=== PATIENT | female | born 1955 | race Caucasian/White ===

== ENCOUNTER 2019-12-22 11:52 | Inpatient (IN) ==
[2019-12-22 12:37] LABS: Basophils % 0.1 % (0.0-0.8); Hematocrit 34.3 VOL% (35.7-47.0); Hemoglobin 10.8 GM/DL (12.0-16.0); Immature Granulocytes % 0.6 %; Immature Granulocytes Absolute 0.13 #; Lymphocytes # 0.7 10*3/uL (1.4-4.0); Lymphocytes % 3.2 % (21.3-54.2); Mean Corpuscular HGB Conc 31.5 GM/DL (32-36); Mean Corpuscular Volume 100.6 FL (87-102); Mean Platelet Volume 9.4 FL (9.6-12.0); Neutrophils % 89.1 % (38.7-73.9); Platelet Count 209 T/CUMM (130-400); Red Blood Count 3.41 MC/CUMM (3.8-5.5); Red Cell Distribution Width 13.4 % (9.3-17.3); White Blood Count 20.3 T/CUMM (4-12)
[2019-12-22 12:51] LABS: ABG Base Excess 5.7 MMOL/L (-2.5-2.5); ABG HCO3 29.5 MMOL/L (20-26); ABG Oxygen Saturation 94.9 % (95-100); ABG PH 7.224 (7.35-7.45); ABG PO2 79.8 MM HG (80-95); ABG TCO2 33.9 MMOL/L (23-27); Allen Test Positive
[2019-12-22 12:54] LABS: ABG PCO2 88.5 MM HG (35-48)
[2019-12-22 12:55] LABS: PT Patient Result 10.8 SECS (9.8-11.9); Partial Thromboplastin Time 31.5 SECS (23.9-33.8)
[2019-12-22 13:01] LABS: Alanine Aminotransferase 17 U/L (13-56); Albumin 3.1 G/DL (3.4-5.0); Alkaline Phosphatase 78 U/L (45-117); Aspartate Amino Transferase 12 U/L (0-37); Bilirubin,Total < 0.39 MG/DL (0.2-1.0); Blood Urea Nitrogen 11 MG/DL (7-18); Calcium 9.2 MG/DL (8.5-10.1); Glucose 143 MG/DL (74-106); Osmolality,Calculated 275.7 MOS/KG (273-304); Total Protein 6.6 G/DL (6.4-8.3)
[2019-12-22 13:03] LABS: Estimated Glom Filtration Rate 0 ML/MIN
[2019-12-22 13:24] LABS: Anisocytosis 1+; Band Neutrophils 15 % (0-10); Lymphocytes 3 % (20-55); Macrocytosis 1+; Platelet Estimate Normal; Segmented Neutrophils 74 % (50-85); Total Cells Counted 100
[2019-12-22 13:39] LABS: Amorphous Crystals,Urine Occasional /HPF (Few); Apearance,Urine CLOUDY (Clear); Bacteria,Urine Occasional /HPF (Few); Bilirubin,Urine Negative (Negative); Blood, Urine Large mg/dL (Negative); Glucose,Urine (UA) Negative (Negative); Ketones,Urine Negative (Negative); Nitrite,Urine Negative (Negative); Protein,Urine 30 MG/DL; RBC,Urine 325 /HPF (0-4); Urine Color Yellow (Yellow); Urine Specific Gravity 1.019 (1.001-1.035); Urine Urobilinogen < 2.0 EU/DL (0.2-1.0); WBC,Urine 2 /HPF (0-6)
[2019-12-22 13:54] LABS: Barbiturates Screen,Urine Negative (Negative); Benzodiazepines Screen,Urine Negative (Negative); Cannabinoid Screen,Urine Negative (Negative); Opiate Screen,Urine Positive (Negative); Phencyclidine Screen,Urine Negative (Negative)
[2019-12-22] MEDS ORDERED: ALBUTEROL 2.5 MG/3 ML NEB RESP TX PRN (14:32)
[2019-12-22] MEDS ORDERED: DEXTROSE 50% 25 GM/50 ML VIAL IV PRN (14:32)
[2019-12-22] MEDS ORDERED: GLUCAGON 1 MG VIAL IM PRN (14:32)
[2019-12-22] MEDS ORDERED: ONDANSETRON 4 MG/2 ML VIAL IV PRN (14:32)
[2019-12-22] MEDS ORDERED: PANTOPRAZOLE 40 MG VIAL IV SCH (15:00)
[2019-12-22 15:14] LABS: ABG Base Excess 6.9 MMOL/L (-2.5-2.5); ABG HCO3 30.5 MMOL/L (20-26); ABG Oxygen Saturation 88.1 % (95-100); ABG PH 7.299 (7.35-7.45); ABG PO2 56.5 MM HG (80-95); ABG TCO2 32.8 MMOL/L (23-27)
[2019-12-22 15:15] LABS: ABG PCO2 73.4 MM HG (35-48)
[2019-12-22] MEDS: cefTRIAXone 1,000 MG in SYRINGE 1 EACH IV SCH (16:25)
[2019-12-22] MEDS: ENOXAPARIN 40 MG/0.4 ML SYRINGE SUBCUT SCH (16:25)
[2019-12-22] MEDS: methylPREDNISolone SOD SUC 40 MG/1 ML VIAL IV SCH (16:25)
[2019-12-22] MEDS: LEVOFLOXACIN INJ 500 MG in PREMIX 1 EACH IV SCH (16:26)
[2019-12-22] MEDS: LACTATED RINGERS 1,000 ML IV SCH (16:27)
[2019-12-22] MEDS: INSULIN LISPRO 100 UNIT/ML SUBCUT SCH ×2 (16:52→21:11)
[2019-12-22] MEDS: ALBUTEROL 2.5 MG/3 ML NEB RESP TX SCH (19:47)
[2019-12-22] MEDS ORDERED: KETOROLAC 30 MG/1 ML VIAL IV ONE (21:25)
[2019-12-23] MEDS: ALBUTEROL 2.5 MG/3 ML NEB RESP TX SCH ×5 (00:20→20:10)
[2019-12-23] MEDS: methylPREDNISolone SOD SUC 40 MG/1 ML VIAL IV SCH ×3 (03:51→15:54)
[2019-12-23 04:20] LABS: Calcium 9.2 MG/DL (8.5-10.1); Osmolality,Calculated 278.5 MOS/KG (273-304)
[2019-12-23 04:24] LABS: Basophils % 0.1 % (0.0-0.8); Hematocrit 32.3 VOL% (35.7-47.0); Hemoglobin 10.2 GM/DL (12.0-16.0); Immature Granulocytes % 0.6 %; Immature Granulocytes Absolute 0.09 #; Lymphocytes # 0.8 10*3/uL (1.4-4.0); Lymphocytes % 5.6 % (21.3-54.2); Mean Corpuscular HGB Conc 31.6 GM/DL (32-36); Mean Platelet Volume 9.5 FL (9.6-12.0); Monocytes % 5.2 % (1.7-12.7); Neutrophils % 88.5 % (38.7-73.9); Platelet Count 195 T/CUMM (130-400); Red Blood Count 3.23 MC/CUMM (3.8-5.5); Red Cell Distribution Width 13.1 % (9.3-17.3); White Blood Count 14.5 T/CUMM (4-12)
[2019-12-23] MEDS: INSULIN LISPRO 100 UNIT/ML SUBCUT SCH ×4 (08:49→21:00)
[2019-12-23] MEDS ORDERED: NON-FORMULARY MEDICATION (Irbesartan-Hydrochlorothiazide 300-12.5 mg tablet) PO SCH (09:00)
[2019-12-23] MEDS: ASPIRIN EC 81 MG TABLET PO SCH (09:34)
[2019-12-23] MEDS: CHOLECALCIFEROL 1,000 UNIT TABLET PO SCH (09:35)
[2019-12-23] MEDS: PANTOPRAZOLE 40 MG TABLET PO SCH ×2 (09:36→21:07)
[2019-12-23] MEDS: ESCITALOPRAM 10 MG TABLET PO SCH (09:36)
[2019-12-23] MEDS: FERROUS SULFATE 325 MG TABLET PO SCH (09:36)
[2019-12-23] MEDS: LORATADINE 10 MG TABLET PO SCH (09:36)
[2019-12-23] MEDS: atenoloL 25 MG TABLET PO SCH (09:36)
[2019-12-23] MEDS: LACTATED RINGERS 1,000 ML IV SCH (09:38)
[2019-12-23] MEDS ORDERED: ALPRAZolam 0.5 MG TABLET PO ONE (09:46)
[2019-12-23 09:53] LABS: ABG Base Excess 8.3 MMOL/L (-2.5-2.5); ABG Oxygen Saturation 95.2 % (95-100); ABG PCO2 53.5 MM HG (35-48); ABG PH 7.417 (7.35-7.45); ABG PO2 71.2 MM HG (80-95); ABG TCO2 31.1 MMOL/L (23-27)
[2019-12-23] MEDS: ENOXAPARIN 40 MG/0.4 ML SYRINGE SUBCUT SCH (15:19)
[2019-12-23] MEDS: LEVOFLOXACIN INJ 500 MG in PREMIX 1 EACH IV SCH (15:19)
[2019-12-23] MEDS: cefTRIAXone 1,000 MG in SYRINGE 1 EACH IV SCH (15:20)
[2019-12-23] MEDS: busPIRone 10 MG TABLET PO SCH ×2 (15:20→21:07)
[2019-12-23] MEDS ORDERED: lamoTRIgine 100 MG TABLET PO SCH (21:00)
[2019-12-23] MEDS ORDERED: ROSUVASTATIN 20 MG TABLET PO SCH (21:00)
[2019-12-24] MEDS: ALBUTEROL 2.5 MG/3 ML NEB RESP TX SCH ×2 (00:31→07:26)
[2019-12-24] MEDS: methylPREDNISolone SOD SUC 40 MG/1 ML VIAL IV SCH (04:15)
[2019-12-24 05:32] LABS: Basophils % 0.1 % (0.0-0.8); Hematocrit 32.1 VOL% (35.7-47.0); Hemoglobin 10.5 GM/DL (12.0-16.0); Immature Granulocytes % 0.5 %; Immature Granulocytes Absolute 0.06 #; Lymphocytes # 1.7 10*3/uL (1.4-4.0); Mean Corpuscular HGB Conc 32.7 GM/DL (32-36); Mean Corpuscular Volume 96.4 FL (87-102); Mean Platelet Volume 9.7 FL (9.6-12.0); Monocytes % 8.4 % (1.7-12.7); Platelet Count 224 T/CUMM (130-400); Red Blood Count 3.33 MC/CUMM (3.8-5.5); Red Cell Distribution Width 13.2 % (9.3-17.3); White Blood Count 13.1 T/CUMM (4-12)
[2019-12-24 05:54] LABS: Calcium 9.2 MG/DL (8.5-10.1); Osmolality,Calculated 277.7 MOS/KG (273-304)
[2019-12-24] MEDS: INSULIN LISPRO 100 UNIT/ML SUBCUT SCH (07:44)
[2019-12-24 08:24] VITALS: BP 164/65
[2019-12-24] MEDS: ASPIRIN EC 81 MG TABLET PO SCH (08:28)
[2019-12-24] MEDS: LORATADINE 10 MG TABLET PO SCH (08:28)
[2019-12-24] MEDS: busPIRone 10 MG TABLET PO SCH (08:28)
[2019-12-24] MEDS: PANTOPRAZOLE 40 MG TABLET PO SCH (08:29)
[2019-12-24] MEDS: FERROUS SULFATE 325 MG TABLET PO SCH (08:29)
[2019-12-24] MEDS: CHOLECALCIFEROL 1,000 UNIT TABLET PO SCH (08:29)
[2019-12-24] MEDS: ESCITALOPRAM 10 MG TABLET PO SCH (08:29)
[2019-12-24] MEDS: atenoloL 25 MG TABLET PO SCH (08:29)
== END 2019-12-24 12:37 | disposition home or self-care (01) | DRG 189 ==
LOC: EDBD → N.ED 11:52 → SUATTDRO 13:17 → N.EDINP 13:17 → N.CC 14:20 → N.2E 12-23 12:41
PROVIDERS: ADMIT Internal Medicine; ATTEND Internal Medicine

== ENCOUNTER 2020-11-17 16:58 | Inpatient (IN) ==
[2020-11-17 17:37] LABS: ABG Base Excess 9.2 MMOL/L (-2.5-2.5); ABG Oxygen Saturation 99.9 % (95-100); ABG PCO2 59.5 MM HG (35-48); ABG PH 7.398 (7.35-7.45); ABG TCO2 31.7 MMOL/L (23-27)
[2020-11-17] MEDS ORDERED: ACETAMINOPHEN 325 MG TABLET PO PRN (17:59)
[2020-11-17] MEDS ORDERED: MORPHINE 2 MG/1 ML SYRINGE IV PRN ×2 (17:59→21:32)
[2020-11-17] MEDS ORDERED: ONDANSETRON 4 MG/2 ML VIAL IV PRN (17:59)
[2020-11-17 18:33] LABS: Albumin 3.1 G/DL (3.4-5.0); Bilirubin,Total 0.7 MG/DL (0.20-1.00); Calcium 9.2 MG/DL (8.5-10.1); Osmolality,Calculated 277.8 MOS/KG (273-304); Potassium 4.4 MMOL/L (3.5-5.1); Total Protein 6.2 G/DL (6.4-8.2)
[2020-11-17 18:34] LABS: Basophils % 0.1 % (0.0-0.8); Hematocrit 46.5 VOL% (35.7-47.0); Hemoglobin 13.6 GM/DL (12.0-16.0); Lymphocytes % 7.8 % (21.3-54.2); Mean Corpuscular HGB Conc 29.2 GM/DL (32-36); Mean Corpuscular Volume 102.2 FL (87-102); Mean Platelet Volume 10.1 FL (9.6-12.0); Monocytes % 9.9 % (1.7-12.7); Neutrophils % 81.2 % (38.7-73.9); Platelet Count 160 T/CUMM (130-400); Red Blood Count 4.55 MC/CUMM (3.8-5.5); White Blood Count 12.4 T/CUMM (4-12)
[2020-11-17] MEDS: PANTOPRAZOLE 40 MG VIAL IV SCH (19:29)
[2020-11-17] MEDS: SODIUM CHLORIDE 0.9% 1,000 ML IV SCH (19:29)
[2020-11-17] MEDS: ENOXAPARIN 40 MG/0.4 ML SYRINGE SUBCUT SCH (19:29)
[2020-11-17] MEDS: CLINDAMYCIN INJ 600 MG/50 ML PREMIX IV SCH (19:32)
[2020-11-17] MEDS: ALBUTEROL/IPRATROPIUM 3 ML NEB RESP TX SCH (19:51)
[2020-11-17] MEDS: QUEtiapine 100 MG TABLET PO SCH (21:03)
[2020-11-17] MEDS: lamoTRIgine 100 MG TABLET PO SCH (21:20)
[2020-11-18] MEDS: SODIUM CHLORIDE 0.9% 1,000 ML IV SCH ×2 (00:38→08:07)
[2020-11-18] MEDS: ALBUTEROL/IPRATROPIUM 3 ML NEB RESP TX SCH ×4 (00:54→19:20)
[2020-11-18] MEDS: CLINDAMYCIN INJ 600 MG/50 ML PREMIX IV SCH ×2 (03:46→09:35)
[2020-11-18 04:17] LABS: ABG Base Excess 8.3 MMOL/L (-2.5-2.5); ABG HCO3 35.3 MMOL/L (20-26); ABG Oxygen Saturation 99.6 % (95-100); ABG PH 7.388 (7.35-7.45); ABG TCO2 37.2 MMOL/L (23-27)
[2020-11-18 05:32] LABS: Basophils % 0.1 % (0.0-0.8); Eosinophils % 0.2 % (0.00-10.9); Hematocrit 40.9 VOL% (35.7-47.0); Hemoglobin 12.5 GM/DL (12.0-16.0); Immature Granulocytes % 0.6 %; Immature Granulocytes Absolute 0.06 #; Lymphocytes # 1.7 10*3/uL (1.4-4.0); Lymphocytes % 15.7 % (21.3-54.2); Mean Corpuscular HGB Conc 30.6 GM/DL (32-36); Mean Platelet Volume 10.4 FL (9.6-12.0); Monocytes % 11.6 % (1.7-12.7); Neutrophils % 71.8 % (38.7-73.9); Platelet Count 155 T/CUMM (130-400); Red Blood Count 4.09 MC/CUMM (3.8-5.5); Red Cell Distribution Width 15.2 % (9.3-17.3); White Blood Count 10.6 T/CUMM (4-12)
[2020-11-18 05:52] LABS: Calcium 8.6 MG/DL (8.5-10.1); Osmolality,Calculated 273.1 MOS/KG (273-304); Potassium 3.9 MMOL/L (3.5-5.1)
[2020-11-18] MEDS: ASPIRIN EC 81 MG TABLET PO SCH (08:29)
[2020-11-18] MEDS: atenoloL 25 MG TABLET PO SCH (08:32)
[2020-11-18] MEDS: ESCITALOPRAM 10 MG TABLET PO SCH (08:32)
[2020-11-18] MEDS: CHOLECALCIFEROL 1,000 UNIT TABLET PO SCH (08:32)
[2020-11-18 08:37] LABS: Bilirubin,Urine Negative (Negative); Blood, Urine Large mg/dL (Negative); Glucose,Urine (UA) Negative (Negative); Hyaline Casts,Urine 7 /LPF (0-3); Ketones,Urine 20 mg/dL (Negative); Nitrite,Urine Negative (Negative); Protein,Urine Negative; RBC,Urine 157 /HPF (0-4); Squamous Epithelial Cell,Urine Occasional /HPF (0-10); Urine Appearance CLEAR (Clear); Urine Color Amber (Yellow); Urine Specific Gravity 1.019 (1.001-1.035); Urine Urobilinogen < 2.0 EU/DL (0.2-1.0)
[2020-11-18] MEDS ORDERED: atenoloL 25 MG TABLET PO SCH (09:00)
[2020-11-18] MEDS: acetaZOLAMIDE 250 MG TABLET PO SCH ×2 (09:29→23:17)
[2020-11-18 13:18] LABS: ABG Base Excess 8.6 MMOL/L (-2.5-2.5); ABG HCO3 32.3 MMOL/L (20-26); ABG Oxygen Saturation 95.2 % (95-100); ABG PCO2 59.2 MM HG (35-48); ABG PH 7.391 (7.35-7.45); ABG PO2 78.5 MM HG (80-95); ABG TCO2 31.6 MMOL/L (23-27)
[2020-11-18] MEDS ORDERED: RACEPINEPHRINE 0.5 ML NEB RESP TX ONE (15:54)
[2020-11-18] MEDS ORDERED: DEXAMETHASONE 4 MG/1 ML VIAL IV STA (15:54)
[2020-11-18] MEDS: CEFEPIME 1,000 MG in SODIUM CHLORIDE 0.9% 100 ML IV SCH ×2 (16:13→23:01)
[2020-11-18] MEDS ORDERED: VANCOMYCIN INJ 2,500 MG in SODIUM CHLORIDE 0.9% 500 ML IV ONE (17:00)
[2020-11-18] MEDS: ENOXAPARIN 40 MG/0.4 ML SYRINGE SUBCUT SCH (17:24)
[2020-11-18] MEDS: PANTOPRAZOLE 40 MG VIAL IV SCH (17:26)
[2020-11-18] MEDS: lamoTRIgine 100 MG TABLET PO SCH (23:16)
[2020-11-18] MEDS: ROSUVASTATIN 20 MG TABLET PO SCH (23:17)
[2020-11-18] MEDS: QUEtiapine 100 MG TABLET PO SCH (23:22)
[2020-11-19] MEDS: ALBUTEROL/IPRATROPIUM 3 ML NEB RESP TX SCH ×4 (00:58→19:43)
[2020-11-19 04:04] LABS: ABG Base Excess 5.3 MMOL/L (-2.5-2.5); ABG HCO3 33.8 MMOL/L (20-26); ABG Oxygen Saturation 99.6 % (95-100); ABG PH 7.306 (7.35-7.45); ABG PO2 348.3 MM HG (80-95)
[2020-11-19 04:10] LABS: ABG PCO2 69.4 MM HG (35-48)
[2020-11-19 05:59] LABS: Albumin 2.6 G/DL (3.4-5.0); Bilirubin,Total 1.1 MG/DL (0.20-1.00); Osmolality,Calculated 284.4 MOS/KG (273-304); Potassium 4.1 MMOL/L (3.5-5.1); Total Protein 6.1 G/DL (6.4-8.2)
[2020-11-19] MEDS: CEFEPIME 1,000 MG in SODIUM CHLORIDE 0.9% 100 ML IV SCH ×4 (06:06→22:10)
[2020-11-19] MEDS: VANCOMYCIN INJ 1,750 MG in SODIUM CHLORIDE 0.9% 500 ML IV SCH ×2 (06:46→17:31)
[2020-11-19 07:27] LABS: Basophils % 0.1 % (0.0-0.8); Hematocrit 41.2 VOL% (35.7-47.0); Hemoglobin 12.3 GM/DL (12.0-16.0); Immature Granulocytes % 0.9 %; Immature Granulocytes Absolute 0.08 #; Lymphocytes # 0.5 10*3/uL (1.4-4.0); Lymphocytes % 5.5 % (21.3-54.2); Mean Corpuscular HGB Conc 29.9 GM/DL (32-36); Mean Corpuscular Volume 102.7 FL (87-102); Mean Platelet Volume 10.6 FL (9.6-12.0); Monocytes % 7.3 % (1.7-12.7); Neutrophils % 86.2 % (38.7-73.9); Platelet Count 164 T/CUMM (130-400); Red Blood Count 4.01 MC/CUMM (3.8-5.5); Red Cell Distribution Width 15.2 % (9.3-17.3); White Blood Count 8.9 T/CUMM (4-12)
[2020-11-19] MEDS: ASPIRIN EC 81 MG TABLET PO SCH (08:40)
[2020-11-19] MEDS: ESCITALOPRAM 10 MG TABLET PO SCH (08:40)
[2020-11-19] MEDS: LOSARTAN 25 MG TABLET PO SCH (08:40)
[2020-11-19] MEDS: acetaZOLAMIDE 250 MG TABLET PO SCH ×2 (08:40→22:07)
[2020-11-19] MEDS: CHOLECALCIFEROL 1,000 UNIT TABLET PO SCH (08:40)
[2020-11-19] MEDS: atenoloL 25 MG TABLET PO SCH (08:40)
[2020-11-19] MEDS ORDERED: guaiFENesin/DM ER 600-30 MG TABLET PO PRN (08:51)
[2020-11-19 09:49] LABS: ABG HCO3 28.8 MMOL/L (20-26); ABG Oxygen Saturation 94.9 % (95-100); ABG PCO2 62.9 MM HG (35-48); ABG PH 7.329 (7.35-7.45); ABG PO2 77.1 MM HG (80-95); ABG TCO2 29.5 MMOL/L (23-27)
[2020-11-19] MEDS: predniSONE 20 MG TABLET PO SCH (11:22)
[2020-11-19] MEDS: ACETAMINOPHEN 500 MG TABLET PO PRN (11:25)
[2020-11-19] MEDS: hydrALAZINE 20 MG/1 ML VIAL IV PRN (13:35)
[2020-11-19 14:45] LABS: ABG Base Excess 5.1 MMOL/L (-2.5-2.5); ABG HCO3 28.8 MMOL/L (20-26); ABG Oxygen Saturation 91.7 % (95-100); ABG PCO2 46.7 MM HG (35-48); ABG PH 7.422 (7.35-7.45); ABG TCO2 26.6 MMOL/L (23-27)
[2020-11-19] MEDS: ENOXAPARIN 40 MG/0.4 ML SYRINGE SUBCUT SCH (17:31)
[2020-11-19] MEDS: PANTOPRAZOLE 40 MG VIAL IV SCH (17:31)
[2020-11-19] MEDS ORDERED: ALBUTEROL 2.5 MG/3 ML NEB RESP TX PRN (18:09)
[2020-11-19] MEDS: SODIUM CHLORIDE 3% 4 ML NEB RESP TX SCH (19:44)
[2020-11-19] MEDS: busPIRone 5 MG TABLET PO SCH (22:07)
[2020-11-19] MEDS: lamoTRIgine 100 MG TABLET PO SCH (22:07)
[2020-11-19] MEDS: QUEtiapine 100 MG TABLET PO SCH (22:07)
[2020-11-19] MEDS: ROSUVASTATIN 20 MG TABLET PO SCH (22:10)
[2020-11-20] MEDS: ALBUTEROL/IPRATROPIUM 3 ML NEB RESP TX SCH ×4 (00:18→19:49)
[2020-11-20 03:32] LABS: ABG Base Excess 2.7 MMOL/L (-2.5-2.5); ABG HCO3 26.7 MMOL/L (20-26); ABG PCO2 66.7 MM HG (35-48); ABG PH 7.284 (7.35-7.45); ABG PO2 74.6 MM HG (80-95); ABG TCO2 28.4 MMOL/L (23-27)
[2020-11-20] MEDS: hydrALAZINE 20 MG/1 ML VIAL IV PRN ×2 (05:08→17:09)
[2020-11-20] MEDS: CEFEPIME 1,000 MG in SODIUM CHLORIDE 0.9% 100 ML IV SCH ×3 (05:08→15:30)
[2020-11-20 05:16] LABS: Basophils % 0.2 % (0.0-0.8); Eosinophils % 0.2 % (0.00-10.9); Hematocrit 39.7 VOL% (35.7-47.0); Hemoglobin 12.1 GM/DL (12.0-16.0); Immature Granulocytes % 0.9 %; Immature Granulocytes Absolute 0.07 #; Lymphocytes # 1.1 10*3/uL (1.4-4.0); Lymphocytes % 13.1 % (21.3-54.2); Mean Corpuscular HGB Conc 30.5 GM/DL (32-36); Mean Platelet Volume 9.7 FL (9.6-12.0); Monocytes % 12.7 % (1.7-12.7); Neutrophils % 72.9 % (38.7-73.9); Platelet Count 152 T/CUMM (130-400); Red Blood Count 3.97 MC/CUMM (3.8-5.5); White Blood Count 8.2 T/CUMM (4-12)
[2020-11-20 05:39] LABS: Osmolality,Calculated 282.3 MOS/KG (273-304); Potassium 3.5 MMOL/L (3.5-5.1)
[2020-11-20] MEDS: SODIUM CHLORIDE 3% 4 ML NEB RESP TX SCH ×2 (07:10→19:49)
[2020-11-20] MEDS: ASPIRIN EC 81 MG TABLET PO SCH (09:29)
[2020-11-20] MEDS: DOCUSATE SODIUM 100 MG CAPSULE PO SCH (09:29)
[2020-11-20] MEDS: ESCITALOPRAM 10 MG TABLET PO SCH (09:29)
[2020-11-20] MEDS: CHOLECALCIFEROL 1,000 UNIT TABLET PO SCH (09:29)
[2020-11-20] MEDS: LOSARTAN 25 MG TABLET PO SCH (09:29)
[2020-11-20] MEDS: predniSONE 20 MG TABLET PO SCH (09:29)
[2020-11-20] MEDS: THEOPHYLLINE ER 300 MG TABLET PO SCH (09:29)
[2020-11-20] MEDS: acetaZOLAMIDE 250 MG TABLET PO SCH ×2 (09:29→20:56)
[2020-11-20] MEDS: ACETAMINOPHEN 500 MG TABLET PO PRN (09:30)
[2020-11-20] MEDS: atenoloL 25 MG TABLET PO SCH (09:30)
[2020-11-20] MEDS: busPIRone 5 MG TABLET PO SCH ×3 (09:30→20:57)
[2020-11-20] MEDS: VANCOMYCIN INJ 1,750 MG in SODIUM CHLORIDE 0.9% 500 ML IV SCH ×2 (10:26→20:57)
[2020-11-20] MEDS: MORPHINE ER 15 MG TABLET PO SCH (17:07)
[2020-11-20] MEDS: ENOXAPARIN 40 MG/0.4 ML SYRINGE SUBCUT SCH (17:08)
[2020-11-20] MEDS: PANTOPRAZOLE 40 MG VIAL IV SCH (17:08)
[2020-11-20] MEDS: lamoTRIgine 100 MG TABLET PO SCH (20:55)
[2020-11-20] MEDS: QUEtiapine 100 MG TABLET PO SCH (20:56)
[2020-11-20] MEDS: ROSUVASTATIN 20 MG TABLET PO SCH (20:57)
[2020-11-20] MEDS: hydrALAZINE 25 MG TABLET PO SCH (20:57)
[2020-11-21] MEDS: ALBUTEROL/IPRATROPIUM 3 ML NEB RESP TX SCH ×3 (00:15→13:27)
[2020-11-21] MEDS: CEFEPIME 1,000 MG in SODIUM CHLORIDE 0.9% 100 ML IV SCH ×3 (00:24→13:24)
[2020-11-21 06:41] LABS: Basophils % 0.3 % (0.0-0.8); Eosinophils # 0.1 10*3/uL (0.0-0.87); Eosinophils % 0.6 % (0.00-10.9); Hematocrit 39.4 VOL% (35.7-47.0); Immature Granulocytes % 0.6 %; Immature Granulocytes Absolute 0.05 #; Lymphocytes # 1.5 10*3/uL (1.4-4.0); Lymphocytes % 18.6 % (21.3-54.2); Mean Corpuscular HGB Conc 30.5 GM/DL (32-36); Mean Corpuscular Volume 100.8 FL (87-102); Monocytes % 12.6 % (1.7-12.7); Neutrophils % 67.3 % (38.7-73.9); Platelet Count 160 T/CUMM (130-400); Red Blood Count 3.91 MC/CUMM (3.8-5.5); Red Cell Distribution Width 15.3 % (9.3-17.3); White Blood Count 7.8 T/CUMM (4-12)
[2020-11-21] MEDS: SODIUM CHLORIDE 3% 4 ML NEB RESP TX SCH (07:08)
[2020-11-21 07:17] LABS: Potassium 3.4 MMOL/L (3.5-5.1)
[2020-11-21] MEDS: acetaZOLAMIDE 250 MG TABLET PO SCH (09:46)
[2020-11-21] MEDS: ASPIRIN EC 81 MG TABLET PO SCH (09:46)
[2020-11-21] MEDS: CHOLECALCIFEROL 1,000 UNIT TABLET PO SCH (09:46)
[2020-11-21] MEDS: predniSONE 20 MG TABLET PO SCH (09:46)
[2020-11-21] MEDS: THEOPHYLLINE ER 300 MG TABLET PO SCH (09:46)
[2020-11-21] MEDS: atenoloL 25 MG TABLET PO SCH (09:46)
[2020-11-21] MEDS: ESCITALOPRAM 10 MG TABLET PO SCH (09:46)
[2020-11-21] MEDS: busPIRone 5 MG TABLET PO SCH ×2 (09:46→14:52)
[2020-11-21] MEDS: DOCUSATE SODIUM 100 MG CAPSULE PO SCH (09:47)
[2020-11-21] MEDS: MORPHINE ER 15 MG TABLET PO SCH (09:47)
[2020-11-21] MEDS: LOSARTAN 25 MG TABLET PO SCH (09:47)
[2020-11-21] MEDS: VANCOMYCIN INJ 1,750 MG in SODIUM CHLORIDE 0.9% 500 ML IV SCH (09:47)
[2020-11-21] MEDS: hydrALAZINE 25 MG TABLET PO SCH (09:47)
[2020-11-21] MEDS ORDERED: POTASSIUM CHLORIDE 20 MEQ TABLET PO ONE (10:00)
[2020-11-21 12:09] VITALS: BP 139/56
[2020-11-21] MEDS ORDERED: cephALEXin 500 MG CAPSULE PO SCH (17:00)
== END 2020-11-21 15:47 | disposition home or self-care (01) | DRG 917 ==
LOC: N.ED 16:58 → SUATTDRO 17:58 → N.EDINP 17:58 → N.ICU 20:30 → N.3E 11-19 18:13
PROVIDERS: ADMIT Family Medicine; ATTEND Hospitalist

== ENCOUNTER 2021-03-02 09:30 | Inpatient (IN) ==
[2021-03-02] MEDS ORDERED: methylPREDNISolone SOD SUC 125 MG/2 ML VIAL IV STA (10:16)
[2021-03-02] MEDS ORDERED: ALBUTEROL NEB SOLN 5 MG/ML 20 ML/BOTTLE RESP TX ONE (10:17)
[2021-03-02] MEDS ORDERED: ALBUTEROL 2.5 MG/3 ML NEB RESP TX ONE (10:18)
[2021-03-02] MEDS ORDERED: methylPREDNISolone SOD SUC 125 MG/2 ML VIAL ONE (10:40)
[2021-03-02 10:41] LABS: ABG Base Excess 15.7 MMOL/L (-2.5-2.5); ABG HCO3 39.6 MMOL/L (20-26); ABG Oxygen Saturation 95.5 % (95-100); ABG PH 7.366 (7.35-7.45); ABG PO2 76.5 MM HG (80-95); ABG TCO2 40.4 MMOL/L (23-27)
[2021-03-02 10:43] LABS: ABG PCO2 79.1 MM HG (35-48)
[2021-03-02 10:43] LABS: Basophils % 0.2 % (0.0-0.8); Eosinophils % 0.2 % (0.00-10.9); Hematocrit 40.4 VOL% (35.7-47.0); Hemoglobin 12.2 GM/DL (12.0-16.0); Immature Granulocytes % 0.7 %; Immature Granulocytes Absolute 0.08 #; Lymphocytes # 1.5 10*3/uL (1.4-4.0); Lymphocytes % 12.3 % (21.3-54.2); Mean Corpuscular HGB Conc 30.2 GM/DL (32-36); Mean Corpuscular Volume 102.5 FL (87-102); Mean Platelet Volume 9.9 FL (9.6-12.0); Monocytes % 9.2 % (1.7-12.7); Neutrophils % 77.4 % (38.7-73.9); Platelet Count 166 T/CUMM (130-400); Red Blood Count 3.94 MC/CUMM (3.8-5.5); White Blood Count 12.1 T/CUMM (4-12)
[2021-03-02 11:02] LABS: Albumin 3.3 G/DL (3.4-5.0); Bilirubin,Total 0.7 MG/DL (0.20-1.00); Calcium 9.8 MG/DL (8.5-10.1); Potassium 3.9 MMOL/L (3.5-5.1); Total Protein 6.3 G/DL (6.4-8.2)
[2021-03-02] MEDS ORDERED: cefTRIAXone 1,000 MG in SODIUM CHLORIDE 0.9% 100 ML IV STA (11:38)
[2021-03-02] MEDS ORDERED: AZITHROMYCIN INJ 500 MG in SODIUM CHLORIDE 0.9% 250 ML IV STA (11:38)
[2021-03-02 11:51] LABS: Bilirubin,Urine Negative (Negative); Blood, Urine Negative (Negative); Glucose,Urine (UA) Negative (Negative); Hyaline Casts,Urine 3 /LPF (0-3); Ketones,Urine Negative (Negative); Mucus,Urine Occasional /LPF (Occasional); Nitrite,Urine Negative (Negative); Protein,Urine 30 MG/DL; RBC,Urine 7 /HPF (0-4); Squamous Epithelial Cell,Urine Occasional /HPF (0-10); Urine Appearance CLEAR (Clear); Urine Color Yellow (Yellow); Urine Specific Gravity 1.021 (1.001-1.035)
[2021-03-02 11:54] LABS: Barbiturates Screen,Urine Negative (Negative); Benzodiazepines Screen,Urine Negative (Negative); Cannabinoid Screen,Urine Negative (Negative); Opiate Screen,Urine Positive (Negative); Phencyclidine Screen,Urine Negative (Negative)
[2021-03-02 12:20] LABS: ABG HCO3 38.9 MMOL/L (20-26); ABG Oxygen Saturation 94.6 % (95-100); ABG PH 7.351 (7.35-7.45); ABG PO2 75.3 MM HG (80-95); ABG TCO2 40.2 MMOL/L (23-27)
[2021-03-02 12:22] LABS: ABG PCO2 81.2 MM HG (35-48)
[2021-03-02] MEDS ORDERED: MORPHINE 2 MG/1 ML SYRINGE IV STA (12:32)
[2021-03-02] MEDS ORDERED: NALOXONE 0.4 MG/ML VIAL IV STA (12:46)
[2021-03-02] MEDS ORDERED: NALOXONE 0.4 MG/ML VIAL ONE (12:48)
[2021-03-02] MEDS ORDERED: GLUCAGON 1 MG VIAL IM PRN (12:58)
[2021-03-02] MEDS ORDERED: ONDANSETRON 4 MG/2 ML VIAL IV PRN (12:58)
[2021-03-02] MEDS ORDERED: guaiFENesin/DM ER 600-30 MG TABLET PO PRN (12:58)
[2021-03-02] MEDS ORDERED: DEXTROSE 50% 25 GM/50 ML SYRINGE IV PRN (12:58)
[2021-03-02] MEDS ORDERED: hydrALAZINE 20 MG/1 ML VIAL IV PRN (12:58)
[2021-03-02] MEDS ORDERED: FUROSEMIDE 40 MG/4 ML VIAL IV STA (13:03)
[2021-03-02 13:29] LABS: Risk Ratio 2.9; Thyroid Stimulating Hormone 0.437 uIU/ml (0.358-3.74)
[2021-03-02] MEDS: ENOXAPARIN 40 MG/0.4 ML SYRINGE SUBCUT SCH (13:46)
[2021-03-02] MEDS ORDERED: methylPREDNISolone SOD SUC 125 MG/2 ML VIAL IV SCH (14:30)
[2021-03-02] MEDS ORDERED: INFLUENZA VIRUS VACCINE 0.5 ML SYRINGE IM ONE (14:57)
[2021-03-02] MEDS: ALBUTEROL/IPRATROPIUM 3 ML NEB RESP TX SCH ×2 (15:15→19:05)
[2021-03-02 16:12] LABS: ABG Base Excess 17.1 MMOL/L (-2.5-2.5); ABG HCO3 41.1 MMOL/L (20-26); ABG Oxygen Saturation 92.6 % (95-100)
[2021-03-02 16:13] LABS: ABG PCO2 75.1 MM HG (35-48)
[2021-03-02 18:09] LABS: ABG Base Excess 16.5 MMOL/L (-2.5-2.5); ABG HCO3 40.4 MMOL/L (20-26); ABG Oxygen Saturation 92.9 % (95-100); ABG PH 7.385 (7.35-7.45); ABG PO2 65.9 MM HG (80-95); ABG TCO2 40.7 MMOL/L (23-27); Allen Test Positive; Pt O2 Delivery Device BIPAP
[2021-03-02] MEDS: methylPREDNISolone SOD SUC 125 MG/2 ML VIAL IV SCH (20:31)
[2021-03-03] MEDS: ALBUTEROL/IPRATROPIUM 3 ML NEB RESP TX SCH ×7 (00:08→23:25)
[2021-03-03 01:03] LABS: ABG Base Excess 13.6 MMOL/L (-2.5-2.5); ABG HCO3 39.5 MMOL/L (20-26); ABG Oxygen Saturation 89.7 % (95-100); ABG PCO2 54.1 MM HG (35-48); ABG PH 7.481 (7.35-7.45); ABG PO2 53.4 MM HG (80-95); ABG TCO2 41.1 MMOL/L (23-27)
[2021-03-03 04:02] LABS: ABG Base Excess 13.7 MMOL/L (-2.5-2.5); ABG PH 7.501 (7.35-7.45); ABG PO2 69.2 MM HG (80-95); ABG TCO2 40.5 MMOL/L (23-27)
[2021-03-03] MEDS: methylPREDNISolone SOD SUC 125 MG/2 ML VIAL IV SCH ×3 (05:45→20:04)
[2021-03-03 06:21] LABS: Basophils % 0.1 % (0.0-0.8); Hematocrit 41.3 VOL% (35.7-47.0); Immature Granulocytes % 0.8 %; Immature Granulocytes Absolute 0.07 #; Lymphocytes # 0.9 10*3/uL (1.4-4.0); Lymphocytes % 10.7 % (21.3-54.2); Mean Corpuscular HGB Conc 31.5 GM/DL (32-36); Mean Corpuscular Volume 96.3 FL (87-102); Mean Platelet Volume 10.6 FL (9.6-12.0); Monocytes % 6.1 % (1.7-12.7); Neutrophils % 82.3 % (38.7-73.9); Platelet Count 180 T/CUMM (130-400); Red Blood Count 4.29 MC/CUMM (3.8-5.5); Red Cell Distribution Width 14.1 % (9.3-17.3); White Blood Count 8.5 T/CUMM (4-12)
[2021-03-03 06:47] LABS: Albumin 3.2 G/DL (3.4-5.0); Bilirubin,Total 0.8 MG/DL (0.20-1.00); Calcium 10.1 MG/DL (8.5-10.1); Potassium 3.2 MMOL/L (3.5-5.1); Total Protein 7.2 G/DL (6.4-8.2)
[2021-03-03] MEDS ORDERED: PNEUMOCOCCAL VACCINE (13 VALENT) 0.5 ML SYRINGE IM ONE (09:00)
[2021-03-03] MEDS: LOSARTAN 25 MG TABLET PO SCH (09:30)
[2021-03-03] MEDS: AZITHROMYCIN 250 MG TABLET PO SCH (09:30)
[2021-03-03] MEDS: PANTOPRAZOLE 40 MG TABLET PO SCH (09:30)
[2021-03-03] MEDS: POTASSIUM CHLORIDE 20 MEQ TABLET PO PRN ×3 (10:56→17:10)
[2021-03-03] MEDS: cefTRIAXone 1,000 MG in SODIUM CHLORIDE 0.9% 100 ML IV SCH (11:03)
[2021-03-03] MEDS: ENOXAPARIN 40 MG/0.4 ML SYRINGE SUBCUT SCH (13:15)
[2021-03-03] MEDS: ACETYLCYSTEINE 20% 800 MG/4 ML VIAL RESP TX SCH ×2 (15:05→23:25)
[2021-03-03] MEDS: BUDESONIDE 0.5 MG/2 ML NEB RESP TX SCH ×2 (15:05→20:38)
[2021-03-04] MEDS: ALBUTEROL/IPRATROPIUM 3 ML NEB RESP TX SCH ×5 (03:40→19:30)
[2021-03-04 05:19] LABS: Basophils % 0.1 % (0.0-0.8); Hematocrit 39.1 VOL% (35.7-47.0); Hemoglobin 12.8 GM/DL (12.0-16.0); Immature Granulocytes % 0.4 %; Immature Granulocytes Absolute 0.03 #; Lymphocytes # 0.6 10*3/uL (1.4-4.0); Lymphocytes % 7.8 % (21.3-54.2); Mean Corpuscular HGB Conc 32.7 GM/DL (32-36); Mean Corpuscular Volume 96.3 FL (87-102); Mean Platelet Volume 10.3 FL (9.6-12.0); Monocytes % 6.6 % (1.7-12.7); Neutrophils % 85.1 % (38.7-73.9); Platelet Count 170 T/CUMM (130-400); Red Blood Count 4.06 MC/CUMM (3.8-5.5); Red Cell Distribution Width 14.7 % (9.3-17.3); White Blood Count 7.6 T/CUMM (4-12)
[2021-03-04] MEDS: methylPREDNISolone SOD SUC 125 MG/2 ML VIAL IV SCH ×3 (05:45→20:30)
[2021-03-04 06:38] LABS: Albumin 3.1 G/DL (3.4-5.0); Bilirubin,Total 0.8 MG/DL (0.20-1.00); Calcium 10.1 MG/DL (8.5-10.1); Osmolality,Calculated 274.4 MOS/KG (273-304); Potassium 3.9 MMOL/L (3.5-5.1); Total Protein 6.8 G/DL (6.4-8.2)
[2021-03-04] MEDS: BUDESONIDE 0.5 MG/2 ML NEB RESP TX SCH ×2 (07:22→19:30)
[2021-03-04] MEDS: ACETYLCYSTEINE 20% 800 MG/4 ML VIAL RESP TX SCH ×2 (07:22→14:20)
[2021-03-04] MEDS: AZITHROMYCIN 250 MG TABLET PO SCH (08:04)
[2021-03-04] MEDS: PANTOPRAZOLE 40 MG TABLET PO SCH (08:04)
[2021-03-04] MEDS: LOSARTAN 25 MG TABLET PO SCH (08:04)
[2021-03-04] MEDS: THEOPHYLLINE ER 300 MG TABLET PO SCH (09:48)
[2021-03-04] MEDS: DOCUSATE SODIUM 100 MG CAPSULE PO SCH (09:48)
[2021-03-04] MEDS: ASPIRIN EC 81 MG TABLET PO SCH (09:49)
[2021-03-04] MEDS: ESCITALOPRAM 10 MG TABLET PO SCH (09:49)
[2021-03-04] MEDS: atenoloL 25 MG TABLET PO SCH (09:49)
[2021-03-04] MEDS: GABAPENTIN 300 MG CAPSULE PO SCH ×3 (09:49→20:29)
[2021-03-04] MEDS: CHOLECALCIFEROL 1,000 UNIT TABLET PO SCH (09:49)
[2021-03-04] MEDS: cefTRIAXone 1,000 MG in SODIUM CHLORIDE 0.9% 100 ML IV SCH (10:21)
[2021-03-04] MEDS: ENOXAPARIN 40 MG/0.4 ML SYRINGE SUBCUT SCH (15:18)
[2021-03-04] MEDS: risperiDONE 1 MG TABLET PO SCH (20:28)
[2021-03-04] MEDS: lamoTRIgine 100 MG TABLET PO SCH (20:29)
[2021-03-05] MEDS: ALBUTEROL/IPRATROPIUM 3 ML NEB RESP TX SCH ×7 (00:36→23:22)
[2021-03-05] MEDS: ACETYLCYSTEINE 20% 800 MG/4 ML VIAL RESP TX SCH ×2 (00:36→07:21)
[2021-03-05 04:55] LABS: ABG Base Excess 4.6 MMOL/L (-2.5-2.5); ABG HCO3 30.2 MMOL/L (20-26); ABG Oxygen Saturation 96.4 % (95-100); ABG PCO2 48.9 MM HG (35-48); ABG PH 7.409 (7.35-7.45); ABG PO2 85.9 MM HG (80-95); ABG TCO2 31.7 MMOL/L (23-27); Allen Test Positive
[2021-03-05] MEDS: methylPREDNISolone SOD SUC 125 MG/2 ML VIAL IV SCH (05:42)
[2021-03-05 06:36] LABS: Basophils % 0.1 % (0.0-0.8); Hematocrit 39.9 VOL% (35.7-47.0); Hemoglobin 12.6 GM/DL (12.0-16.0); Immature Granulocytes % 0.7 %; Immature Granulocytes Absolute 0.06 #; Lymphocytes # 0.7 10*3/uL (1.4-4.0); Lymphocytes % 8.2 % (21.3-54.2); Mean Corpuscular HGB Conc 31.6 GM/DL (32-36); Mean Corpuscular Volume 96.8 FL (87-102); Mean Platelet Volume 10.1 FL (9.6-12.0); Monocytes % 7.3 % (1.7-12.7); Neutrophils % 83.7 % (38.7-73.9); Platelet Count 179 T/CUMM (130-400); Red Blood Count 4.12 MC/CUMM (3.8-5.5); Red Cell Distribution Width 15.1 % (9.3-17.3); White Blood Count 8.4 T/CUMM (4-12)
[2021-03-05 06:59] LABS: Albumin 2.8 G/DL (3.4-5.0); Bilirubin,Total 0.9 MG/DL (0.20-1.00); Calcium 9.4 MG/DL (8.5-10.1); Potassium 3.7 MMOL/L (3.5-5.1); Total Protein 6.3 G/DL (6.4-8.2)
[2021-03-05] MEDS: BUDESONIDE 0.5 MG/2 ML NEB RESP TX SCH ×2 (07:21→21:13)
[2021-03-05] MEDS: PANTOPRAZOLE 40 MG TABLET PO SCH (09:15)
[2021-03-05] MEDS: THEOPHYLLINE ER 300 MG TABLET PO SCH (09:15)
[2021-03-05] MEDS: CHOLECALCIFEROL 1,000 UNIT TABLET PO SCH (09:15)
[2021-03-05] MEDS: atenoloL 25 MG TABLET PO SCH (09:15)
[2021-03-05] MEDS: DOCUSATE SODIUM 100 MG CAPSULE PO SCH (09:15)
[2021-03-05] MEDS: LOSARTAN 25 MG TABLET PO SCH (09:15)
[2021-03-05] MEDS: ESCITALOPRAM 10 MG TABLET PO SCH (09:15)
[2021-03-05] MEDS: GABAPENTIN 300 MG CAPSULE PO SCH ×3 (09:15→20:48)
[2021-03-05] MEDS: AZITHROMYCIN 250 MG TABLET PO SCH (09:15)
[2021-03-05] MEDS: ASPIRIN EC 81 MG TABLET PO SCH (09:15)
[2021-03-05] MEDS: cefTRIAXone 1,000 MG in SODIUM CHLORIDE 0.9% 100 ML IV SCH (12:02)
[2021-03-05] MEDS: ENOXAPARIN 40 MG/0.4 ML SYRINGE SUBCUT SCH (13:38)
[2021-03-05] MEDS: methylPREDNISolone SOD SUC 40 MG/1 ML VIAL IV SCH ×2 (13:38→22:34)
[2021-03-05] MEDS: ACETAMINOPHEN 325 MG TABLET PO PRN ×2 (15:45→20:54)
[2021-03-05] MEDS: lamoTRIgine 100 MG TABLET PO SCH (20:48)
[2021-03-05] MEDS: risperiDONE 1 MG TABLET PO SCH (20:48)
[2021-03-06] MEDS: ALBUTEROL/IPRATROPIUM 3 ML NEB RESP TX SCH ×3 (03:46→11:45)
[2021-03-06] MEDS: methylPREDNISolone SOD SUC 40 MG/1 ML VIAL IV SCH (05:35)
[2021-03-06] MEDS: BUDESONIDE 0.5 MG/2 ML NEB RESP TX SCH (07:35)
[2021-03-06] MEDS: GABAPENTIN 300 MG CAPSULE PO SCH (08:51)
[2021-03-06] MEDS: CHOLECALCIFEROL 1,000 UNIT TABLET PO SCH (08:51)
[2021-03-06] MEDS: atenoloL 25 MG TABLET PO SCH (08:52)
[2021-03-06] MEDS: ASPIRIN EC 81 MG TABLET PO SCH (08:52)
[2021-03-06] MEDS: ESCITALOPRAM 10 MG TABLET PO SCH (08:52)
[2021-03-06] MEDS: LOSARTAN 25 MG TABLET PO SCH (08:52)
[2021-03-06] MEDS: THEOPHYLLINE ER 300 MG TABLET PO SCH (08:52)
[2021-03-06] MEDS: AZITHROMYCIN 250 MG TABLET PO SCH (08:52)
[2021-03-06] MEDS: PANTOPRAZOLE 40 MG TABLET PO SCH (08:52)
[2021-03-06] MEDS: DOCUSATE SODIUM 100 MG CAPSULE PO SCH (08:53)
[2021-03-06] MEDS ORDERED: LEVOFLOXACIN 750 MG TABLET PO SCH (11:00)
[2021-03-06] MEDS: cefTRIAXone 1,000 MG in SODIUM CHLORIDE 0.9% 100 ML IV SCH (11:37)
[2021-03-06 11:51] VITALS: BP 141/57
[2021-03-06] MEDS: ENOXAPARIN 40 MG/0.4 ML SYRINGE SUBCUT SCH (13:05)
[2021-03-06] MEDS ORDERED: predniSONE 20 MG TABLET PO SCH (21:00)
== END 2021-03-06 13:03 | disposition home health service (06) | DRG 189 ==
LOC: N.ED 09:30 → N.EDINP 12:58 → SUATTDRO 12:58 → N.EDINP 14:29 → N.CC 14:53 → N.3E 03-04 13:30
PROVIDERS: ADMIT Family Medicine; ATTEND Internal Medicine